=== PATIENT | female | born 1990 | race Asian ===

== ENCOUNTER 2018-07-19 07:40 | Inpatient (IN) | payer OTHER, MEDICAID ==
[2018-07-19] MEDS ORDERED: Lactated Ringers 1000 ML Bag* 1,000 ML IV ONE ×2 (09:11→10:26)
[2018-07-19] MEDS ORDERED: Buffered Lidocaine 1% SYRIN* 1 ML/SYRINGE INTRADERM ONE (09:11)
--- NOTE | 2018-07-19 09:16 | HP ---
General Information - Reason for Visit q4-6 minute contractions - General Information Maternal Age: 27 Grav: 1 Para: 0 SAB: 0 IEA: 0 Estimated Due Date: 07/14/18 Determined By: LMP Maternal Blood Type and Rh: O Positive - Results this Serology/RPR Result: Non-Reactive Rubella Result: Immune HBsAg Result: Negative HIV Result: Negative GBS Culture Result: Negative Past Medical History Delivery History: See Records Pertinent Past Medical History: See Records Pertinent Past Surgical History: See Records Pertinent Family History: See Records - Antepartal Records Antepartal Records: Reviewed, Complicated by: - low platelets Review of Systems Constitutional: Uncomfortable CV Complaint: No Respiratory: Shortness of Breath: No Gastrointestinal: Vomiting Genitourinary: No Bleeding, No Leaking Fluid Musculoskeletal: Contractions Neurological: No Headache Movement: Normal Exam Allergies/Adverse Reactions: Allergies No Known Allergies Allergy (Verified 07/18/18 11:10) - Measurements Height: 5 ft 5 in Weight: 145 lb Weight in lbs: [phone] Body Mass Index (BMI): 24.1 Pre- Weight: 114 lb Weight Gained This : 31 lbs and 0 ozs - Exam Breast: Breast Exam Deferred Extremities: No Edema Heart: Normal Rhythm/Heart Sounds HEENT: No Significant Findings Lungs: Clear Bilaterally Reflexes: DTR 2+ Targeted Exam Findings Cervical Exam: 5cm Effacement: 90% Station: -1 Presenting Part: Vertex Membrane Status: Intact EFM Findings - External Monitor Findings External Monitor Findings: Accelerations Present, Variability Moderate Contractions: Regular, Moderate, 45-90 Seconds Assessment/Plan - Assessment posterm in labor. pt would like an epidural - Obstetrical Risk Factors Obstetrical Risk Factors: Post-Dates - Plan Plan: Admit - Anticipate Vaginal Delivery
[2018-07-19 09:32] LABS: ABS Basophils 0 10^3/ul (0-0.2); ABS Eosinophils 0 10^3/ul (0-0.6); ABS Lymphocytes 0.8 10^3/ul (1.0-4.8); ABS Monocytes 0.4 10^3/ul (0-0.8); ABS Nucleated RBC 0 10^3/ul; Eosinophil % 0 %; Hematocrit 39 % (33-41); Hemoglobin 12.8 g/dL (12.0-16.0); Lymphocyte % 7.4 %; Mean Corpuscular HGB Conc 33 g/dL (31-36); Mean Corpuscular Hemoglobin 31 pg (27-31); Mean Corpuscular Volume 93 fL (80-97); Mean Platelet Volume 11.1 fL (7.4-10.4); Nucleated Red Blood Cells % 0; Platelet Count 134 10^3/uL (150-450); Red Blood Count 4.16 10^6 /uL (3.70-4.87); Red Cell Distribution Width 13 % (10.5-15); White Blood Count 11.3 10^3/uL (3.5-10.8)
[2018-07-19] MEDS ORDERED: OBEPIDURAL* 250 ML EPIDURAL ONE (09:41)
[2018-07-19] MEDS: Lactated Ringers 1000 ML Bag* 1,000 ML IV SCH ×2 (09:54→12:46)
[2018-07-19] MEDS ORDERED: Sodium Citrate/Citric Acid* 15 ML UDC PO PRN (10:26)
[2018-07-19] MEDS ORDERED: EPHEDrine (Pressors)* 50 MG/ML VIAL IV PUSH PRN ×2 (10:26)
[2018-07-19] MEDS ORDERED: Famotidine TAB* 20 MG PO PRN (10:26)
[2018-07-19] MEDS ORDERED: Phenylephrine 40 MCG/ML SYRINGE IV PUSH PRN ×2 (10:26)
[2018-07-19] MEDS ORDERED: Lactated Ringers 1000 ML Bag* 500 ML IV PRN ×2 (10:26)
[2018-07-19] MEDS ORDERED: OBEPIDURAL* 250 ML EPIDURAL SCH (11:00)
[2018-07-19] MEDS ORDERED: Oxytocin in LR* 20 UNITS/1,000 ML BAG IVPB SCH ×2 (11:00→17:00)
[2018-07-19] MEDS ORDERED: Lactated Ringers 1000 ML Bag* 1,000 ML IV SCH ×2 (11:00→17:00)
[2018-07-19] MEDS ORDERED: Sodium Citrate/Citric Acid* 15 ML UDC PO ONE (15:15)
[2018-07-19] MEDS ORDERED: ceFOXitin 2 GM IVPREMIX* 2 GM/50 ML BAG IVPB ONE (15:15)
[2018-07-19] MEDS ORDERED: Chloroprocaine 3%* 20 ML VIAL ONE (15:19)
[2018-07-19] MEDS ORDERED: Ondansetron INJ* 2 MG/ML VIAL ONE (15:31)
[2018-07-19] MEDS ORDERED: OXYTOCIN* 10 UNITS/ML 1 ML VIAL ONE (15:31)
[2018-07-19] MEDS ORDERED: Dexamethasone IV* 4 MG/ML 1 ML (4 MG) ONE (15:31)
[2018-07-19] MEDS ORDERED: Ketorolac INJ* 30 MG/ML 1 ML VIAL IV PRN (15:39)
[2018-07-19] MEDS ORDERED: Acetaminophen IV 1GM/100ML * 1,000 MG/100 ML VIAL IVPB ONE (15:39)
[2018-07-19] MEDS ORDERED: Naloxone* 0.4 MG/ML 1 ML VIAL IV PRN ×2 (15:39→15:41)
[2018-07-19] MEDS ORDERED: oxyCODONE TAB* 5 MG TAB PO PRN ×2 (15:39→16:10)
[2018-07-19] MEDS ORDERED: PROCHLORPERAZINE INJ 5 MG/ML 2 ML VIAL IV PRN ×2 (15:39→15:46)
[2018-07-19] MEDS ORDERED: Scopolamine 1.5 mg* PATCH TRANSDERM PRN (15:46)
[2018-07-19] MEDS ORDERED: Ondansetron INJ* 2 MG/ML VIAL IV PRN (15:46)
[2018-07-19] MEDS ORDERED: Nalbuphine* 10 MG/ML 1 ML VIAL IV PRN (15:46)
[2018-07-19] MEDS ORDERED: Morphine PF AMP (0.5MG/ML)* 5 MG/10 ML AMP ONE (15:58)
[2018-07-19] MEDS ORDERED: Glycerin ADULT SUPP PR PRN (16:45)
[2018-07-19] MEDS ORDERED: Dibucaine 1% 28.35 GM TUBE PR PRN (16:45)
[2018-07-19] MEDS ORDERED: Witch Hazel PAD* JAR TOPICAL PRN (16:45)
[2018-07-19] MEDS: Ketorolac INJ* 30 MG/ML 1 ML VIAL IV SCH (17:00)
[2018-07-19] MEDS: fentaNYL* 50 MCG/ML 2 ML VIAL (100 MCG VIAL) IV PRN ×4 (17:11→17:56)
[2018-07-19] MEDS: Acetaminophen TAB* 325 MG PO SCH (18:44)
[2018-07-19] MEDS: Simethicone TAB* 80 MG TAB.CHEW PO SCH (18:44)
--- NOTE | 2018-07-19 21:50 | OP ---
OPERATIVE REPORT: DATE OF OPERATION: 07/19/18 DATE OF : 86 SURGEON: Volodymyr Kapadia MD COMPUTER NETWORKING INSTRUCTOR ADJUNCT: Olga Lidia Bronson CNM and Katalina King CNM. ANESTHESIA: Epidural. PRE-OP DIAGNOSES: Category 2 tracing, occiput-posterior. POST-OP DIAGNOSIS: Category 2 tracing, occiput-posterior plus nuchal cord. OPERATIVE PROCEDURE: Low transverse section. ESTIMATED BLOOD LOSS: 600 cc. SPECIMENS: None. FINDINGS: This is a 27-year-old who presented at 40 weeks and 5 days in labor. She was approximately 4 cm on admission. She requested an epidural, got an epidural, was started on Pitocin, but had vari able decels with the Pitocin and this was stopped. She continued to progress without Pitocin up to f ully dilated. Attempts were made at pushing. With contractions and pushing, baby had deep variables into the 60s and 70s. Even without pushing at times, she had variables that were quite deep. The ba by remained in occiput-posterior and at approximately -1, 0 station. Because of the repetitive varia ble decels, discussion was made of a section as an alternative to delivery. The risks, bene fits, alternatives, and indications were discussed and decision was made to proceed with that. At th e time of , she had a viable male, Apgars 8 and 9, the weight was 7 pounds 11 ounces. She vance d a normal appearing fallopian tubes and ovaries. Baby had a nuchal cord x1 and was in an occiput-po sterior position. DESCRIPTION OF PROCEDURE: The patient was identified and procedure identified as a low transverse ce sarean section. The patient was taken to the operating room and prepped and draped in the usual [facility] ion in the left lateral recumbent position under epidural anesthesia. A Pfannenstiel incision was ma de at the abdomen, carried down through fat, fascia, and peritoneum. A transverse incision was made in the low uterine segment and extended laterally using blunt dissection. The above infant was deliv ered through the incision with ease. The cord was doubly clamped and cut. The infant was handed to the waiting real estate management specialist. Cord blood was obtained. Placenta delivered manually. The uterus was wip ed out with a wet lap sponge. The uterine incision was then closed using 0 Polysorb in a running fas hion. Good hemostasis was verified. A second layer was used to imbricate the first layer. Good hem ostasis was verified. The uterus was placed back in the abdominal cavity. The gutter was wiped out w ith a wet lap sponge and good hemostasis was achieved. The peritoneum was then closed using 3-0 Poly sorb in a running fashion. Good hemostasis was achieved in the subrectus layers. The fascia was the n closed using 0 Polysorb in a running fashion. Good hemostasis was achieved in the subcu. Copious irrigation was utilized and suctioned out. The skin was closed with 4-0 Monocryl in a subcuticular f ashion. All sponge and instrument counts were correct. The patient was returned to recovery room in stable condition. [id number]/[facility] #: [id number]
[2018-07-20] MEDS: Docusate CAP* 100 MG PO SCH ×4 (00:05→20:19)
[2018-07-20] MEDS: Simethicone TAB* 80 MG TAB.CHEW PO SCH ×5 (00:05→20:19)
[2018-07-20] MEDS: Ketorolac INJ* 30 MG/ML 1 ML VIAL IV SCH ×3 (00:06→13:53)
[2018-07-20] MEDS: Acetaminophen TAB* 325 MG PO SCH ×2 (00:24→09:07)
[2018-07-20] MEDS ORDERED: Ferrous Gluconate TAB* 324 MG TAB PO SCH (09:00)
[2018-07-20 09:02] LABS: ABS Basophils 0 10^3/ul (0-0.2); ABS Eosinophils 0 10^3/ul (0-0.6); ABS Lymphocytes 1.5 10^3/ul (1.0-4.8); ABS Monocytes 0.6 10^3/ul (0-0.8); ABS Neutrophils 10.9 10^3/ul (1.5-7.7); ABS Nucleated RBC 0 10^3/ul; Eosinophil % 0 %; Hematocrit 32 % (33-41); Hemoglobin 10.6 g/dL (12.0-16.0); Lymphocyte % 11.8 %; Mean Corpuscular HGB Conc 33 g/dL (31-36); Mean Corpuscular Hemoglobin 31 pg (27-31); Mean Corpuscular Volume 94 fL (80-97); Nucleated Red Blood Cells % 0; Platelet Count 103 10^3/uL (150-450); Red Blood Count 3.44 10^6 /uL (3.70-4.87); Red Cell Distribution Width 14 % (10.5-15)
[2018-07-20] MEDS ORDERED: Acetaminophen TAB* 325 MG PO PRN (16:00)
[2018-07-20] MEDS ORDERED: oxyCODONE/Acetamin 5/325 MG* TAB PO PRN (16:10)
[2018-07-20] MEDS ORDERED: Zolpidem TAB* 5 MG PO PRN (16:10)
[2018-07-20] MEDS: Ibuprofen TAB* 600 MG PO PRN (18:55)
[2018-07-21] MEDS: Ibuprofen TAB* 600 MG PO PRN (08:34)
[2018-07-21] MEDS: Simethicone TAB* 80 MG TAB.CHEW PO SCH ×4 (08:34→20:50)
[2018-07-21] MEDS: Docusate CAP* 100 MG PO SCH ×3 (08:34→21:11)
[2018-07-21] MEDS: oxyCODONE/Acetamin 5/325 MG* TAB PO PRN ×2 (08:56→14:37)
[2018-07-21] MEDS: Ibuprofen TAB* 600 MG PO SCH ×2 (14:37→20:49)
[2018-07-22] MEDS: oxyCODONE/Acetamin 5/325 MG* TAB PO PRN (02:11)
[2018-07-22] MEDS: Ibuprofen TAB* 600 MG PO SCH ×3 (05:30→15:56)
[2018-07-22 08:06] VITALS: BP 113/73
[2018-07-22] MEDS: Docusate CAP* 100 MG PO SCH ×2 (15:56→15:57)
[2018-07-22] MEDS: Simethicone TAB* 80 MG TAB.CHEW PO SCH ×2 (15:56→15:57)
[2018-07-22] MEDS ORDERED: Scopolamine PATCH Remove* 1 NOTE MISC PATCH OFF PRN (16:09)
== END 2018-07-22 17:43 | disposition home or self-care (01) | DRG 540 ==
LOC: MCHOBOUT 07:40 → MCHOB 09:07
PROVIDERS: ADMIT Obstetrics & Gynecology; ATTEND Obstetrics & Gynecology
PROC: 10907ZC Drainage of Amniotic Fluid, Therapeutic from Products of Conception, Via Natural or Artificial Opening (ICD-10-PCS; 2018-07-19)
PROC: 10D00Z1 Extraction of Products of Conception, Low, Open Approach (ICD-10-PCS; principal; 2018-07-19 15:41)
DX: O76 Abnormality in fetal heart rate and rhythm complicating labor and delivery (principal); O48.0 Post-term pregnancy; Z3A.40 40 weeks gestation of pregnancy; O32.8XX0 Maternal care for other malpresentation of fetus, not applicable or unspecified; O69.81X0 Labor and delivery complicated by cord around neck, without compression, not applicable or unspecified; Z37.0 Single live birth
CPT/HCPCS: 36415; 85025; 86850; 86900; 86901; A9270-GY; J0694; J1100; J1885; J2400; J2405; J2590; J3010